=== PATIENT | male | born 1980 | race Caucasian/White ===

== ENCOUNTER 2016-05-19 07:43 | Emergency (ER) | payer BC ==
[2016-05-19] MEDS ORDERED: Acetaminophen/HYDROcodone 325-5 MG Tab ONE (08:00)
--- NOTE | 2016-05-19 09:31 | EDM.PDOC ---
ED HPI Trauma - General Chief Complaint: Upper Extremity Injury/Pain Stated Complaint: pain of arm Time Seen by Provider: 05/19/16 08:15 Source: Reports: Patient History Limitations: Reports: No limitations - History of Present Illness INITIAL COMMENTS - FREE TEXT/NARRATIVE: This is a 35yo M who was injured when his fishing friend fell off the upper bunk and landed on him. He has right arm pain and pain of the hand when moving it. Denies any weakness or loss of sensation but states it does feel full and tender. Occurred When: just prior to arrival Occurred Where: other Method of Injury: direct blow Severity: moderate Pain/Injury Location: Reports: upper extremity, right Associated Symptoms: Reports: denies other symptoms Review of Systems - Review of Systems Review Of Systems: ROS reveals no pertinent complaints other than HPI. Trauma Exam - Physical Exam Exam: See Below Exam Limited By: No limitations General Appearance: Reports: alert, WD/WN, mild distress Head: Reports: atraumatic, normocephalic Ears: Reports: normal external exam Nose: Reports: normal inspection Throat/Mouth: Reports: Normal inspection Respiratory Exam: Reports: no respiratory distress, lungs clear, normal breath sounds Cardiovascular: Reports: normal peripheral pulses, regular rate, rhythm Extremities: Reports: bony-point tenderness, tenderness Neurologic: Reports: sausage canner II-XII nml as tested, no motor/sensory deficits, normal mood/affect, oriented x 3 Skin: Reports: Normal color, Warm/dry ED TRAUMA EXTREMITY PROCEDURES - Splinting Right Upper Extremity Pre-procedure NV status: normal Post-procedure NV status: normal Splint material: fiberglass Splint design: other Applied & form fitted by: provider Provider post-splint application NV check: NV status normal, good position Complications: No Course - Orders/Labs/Meds Orders: Active Orders 24 hr Category Date Time Status Forearm 2V Rt [CR] Stat Exams 05/19/16 08:05 Taken Departure - Departure Time of Disposition: 10:00 Disposition: Home, Self-Care 01 Condition: good Clinical Impression: Ulnar shaft fracture Qualifiers: Encounter type: initial encounter Fracture type: closed Fracture morphology: other fracture Laterality: right Qualified Code(s): S52.291A - Other fracture of shaft of right ulna, initial encounter for closed fracture Instructions: Ulnar Fracture Referrals: PCP,None [Primary Care Provider] - Additional Instructions: Follow up with primary care provider after 4 to [address] Perez . Phone number [phone]. - Problem List Review Problem List Initiated/Reviewed/Updated: Yes - My Orders Last 24 Hours: My Active Orders 05/19/16 08:05 Forearm 2V Rt [CR] Stat - Assessment/Plan Last 24 Hours: My Active Orders 05/19/16 08:05 Forearm 2V Rt [CR] Stat Plan: Counseled on close monitoring, care and f/u. Patient to f/u with PCP when he gets home. Discussed vascular and neuro checks and close f/u if any concerns. Discussed pain management.
[2016-05-19 10:19] VITALS: BP 154/80
--- NOTE | 2016-05-20 20:02 | CR ---
DATE OF SERVICE: 05/19/2016 CLINICAL DATA: Arm injury. RIGHT FOREARM There is a nondisplaced comminuted fracture through the mid diaphysis of the ulna. No other acute abnormalities. [id number] MTDD
== END 2016-05-19 09:15 | disposition home or self-care (01) ==
LOC: LB.ED 07:43
DX: S52.254A Nondisplaced comminuted fracture of shaft of ulna, right arm, initial encounter for closed fracture (principal); W19.XXXA Unspecified fall, initial encounter
CPT/HCPCS: 29125; 73090; 99283; A9270